=== PATIENT | female | born 1990 | race Two or more races ===

== ENCOUNTER 2016-06-29 23:36 | Emergency (ER) | payer SELFPAY ==
[~2016-06-29] VITALS: Ht 157.5 cm; Wt 94.8 kg
[2016-06-30] MEDS ORDERED: ONDANSETRON 2MG/ML, 2ML IVPush ONE (01:30)
[2016-06-30] MEDS ORDERED: MORPHINE SULFATE 4 MG/ML, 1ML IVPush PRN (01:30)
[2016-06-30] MEDS ORDERED: SODIUM CHLORIDE 0.9% 1,000ML IVBOLUS ONE (01:30)
[2016-06-30 01:33] LABS: HEMOGLOBIN 14.8 g/dL (11.7-16.4)
[2016-06-30 01:45] LABS: BLOOD UREA NITROGEN 11 mg/dL (7-18)
[2016-06-30 02:58] VITALS: BP 104/49
== END 2016-06-30 03:01 | disposition home or self-care (01) ==
LOC: ED 06-30 01:56
DX: O20.0 Threatened abortion (principal); Z3A.01 Less than 8 weeks gestation of pregnancy
CPT/HCPCS: 36415; 76801; 80048; 81001; 82040; 84702; 85025; 86901; 87086; 87147